=== PATIENT | female | born 1975 | race African-American/Black ===

== ENCOUNTER 2018-09-10 14:13 | Outpatient (CLI) | payer BC ==
[2018-09-10 15:12] LABS: AMORPHOUS SEDIMENT,URINE TRACE /HPF; APPEARANCE,URINE CLOUDY; BILIRUBIN,URINE NEGATIVE (NEGATIVE); COLOR,URINE YELLOW; GLUCOSE, URINE 50 mg/dL (NEGATIVE); KETONES,URINE NEGATIVE (NEGATIVE); LEUKOCYTE ESTERASE,URINE TRACE (NEGATIVE); NITRITE,URINE NEGATIVE (NEGATIVE); PROTEIN,URINE NEGATIVE (NEGATIVE); URINE SPECIFIC GRAVITY 1.019; UROBILINOGEN,URINE NEGATIVE mg/dL (<2.0)
[2018-09-10 16:22] LABS: URINE AMPHETAMINES SCREEN NEGATIVE; URINE BARBITURATES SCREEN NEGATIVE; URINE BENZODIAZEPINES SCREEN NEGATIVE; URINE COCAINE SCREEN NEGATIVE; URINE MARIJUANA (THC) SCREEN NEGATIVE; URINE METHADONE SCREEN NEGATIVE; URINE PHENCYCLIDINE SCREEN NEGATIVE
== END 2018-09-10 15:27 | disposition home or self-care (01) ==
LOC: LC 14:13
PROVIDERS: ATTEND Obstetrics & Gynecology
PROC: 4A1HXCZ Monitoring of Products of Conception, Cardiac Rate, External Approach (ICD-10-PCS; principal; 2018-09-10)
DX: O47.03 False labor before 37 completed weeks of gestation, third trimester (principal); O09.523 Supervision of elderly multigravida, third trimester; Z3A.33 33 weeks gestation of pregnancy
CPT/HCPCS: 59025; 80307; 81001

== ENCOUNTER 2018-10-01 14:00 | Outpatient (CLI) | payer BC ==
--- NOTE | 2018-10-01 14:09 | Non Stress Test Report ---
Non Stress Test Datetime Report Generated by CPN: 10/01/2018 14:09 DEMOGRAPHIC EGA NST: 33.1 INDICATION Indication for Study: Ordered by Provider MONITORING Monitor Explained: Monitor Explained; Test Explained; Patient Verbalized Understanding Time on Monitor: 09/10/2018 14:32 Time off Monitor: 09/10/2018 14:57 NST Duration: 25 NST INTERVENTIONS NST Interventions: PO Hydration Physician Notified NST: French, CNM BABY A: [id number] BABY A Movement : Present Contraction Frequency : x2 FHR Baseline : 150 Accelerations : 15X15 Decelerations : None Variability : Moderate 6-25bpm NST Review: Meets Criteria for Reactive NST NST Review and Verified By : Ritu Betancourt RN NST Results: Reactive NST REPORT Report Trigger: Send Report
== END 2018-10-01 14:40 | disposition home or self-care (01) ==
LOC: LC 14:00
PROVIDERS: ATTEND Obstetrics & Gynecology
PROC: 4A1HXCZ Monitoring of Products of Conception, Cardiac Rate, External Approach (ICD-10-PCS; principal; 2018-10-01)
DX: Z34.93 Encounter for supervision of normal pregnancy, unspecified, third trimester (principal)
CPT/HCPCS: 59025

== ENCOUNTER 2018-10-22 16:08 | Inpatient (IN) | payer BC ==
--- NOTE | 2018-10-22 16:16 | Non Stress Test Report ---
Non Stress Test Datetime Report Generated by CPN: 10/22/2018 16:15 DEMOGRAPHIC EGA NST: 36.1 INDICATION Indication for Study: Ordered by Provider; Other Indication for Study (NST) Other: Advanced Maternal Age VITAL SIGNS Temperature - NST: 97.4 Pulse - NST: 100 RESP - NST: 17 NBPSYS NST: 113 NBPDIA NST: 55 MONITORING Monitor Explained: Monitor Explained; Test Explained; Patient Verbalized Understanding Time on Monitor: 10/01/2018 14:09 Time off Monitor: 10/01/2018 14:29 NST Duration: 20 NST INTERVENTIONS NST Interventions: PO Hydration Physician Notified NST: A Hess CNM BABY A: [id number] BABY A Movement : Present Contraction Frequency : 0 Contraction Frequency : denies FHR Baseline : 135 Accelerations : 15X15 Decelerations : None Variability : Moderate 6-25bpm NST Review: Meets Criteria for Reactive NST NST Review and Verified By : Ritu Betancourt RN NST Results: Reactive NST REPORT Report Trigger: Send Report
[2018-10-22 16:52] LABS: APPEARANCE,URINE TURBID; BILIRUBIN,URINE NEGATIVE (NEGATIVE); COLOR,URINE AMBER; GLUCOSE, URINE NEGATIVE (NEGATIVE); KETONES,URINE NEGATIVE (NEGATIVE); LEUKOCYTE ESTERASE,URINE TRACE (NEGATIVE); NITRITE,URINE NEGATIVE (NEGATIVE); PROTEIN,URINE 100 mg/dL (NEGATIVE); URINE SPECIFIC GRAVITY 1.023; UROBILINOGEN,URINE NEGATIVE mg/dL (<2.0)
[2018-10-22] MEDS ORDERED: CEFAZOLIN SODIUM 2 GM in DEXTROSE 5%-WATER 50 ML IV PRN (17:00)
[2018-10-22] MEDS ORDERED: RINGERS SOLUTION,LACTATED 1,000 ML IV PRN ×2 (17:02→18:19)
[2018-10-22] MEDS ORDERED: CITRIC ACID/SODIUM CITRATE ORAL SOLN 15 ML UDCUP ONE (17:07)
[2018-10-22] MEDS ORDERED: CEFAZOLIN 2 GM/D5W RTU 2 GM/50 ML RTUPB IV ONE (17:08)
[2018-10-22] MEDS ORDERED: METOCLOPRAMIDE HCL INJ/PF 10 MG/2 ML SDV ONE (17:08)
[2018-10-22 17:21] LABS: URINE AMPHETAMINES SCREEN NEGATIVE; URINE BARBITURATES SCREEN NEGATIVE; URINE BENZODIAZEPINES SCREEN NEGATIVE; URINE COCAINE SCREEN NEGATIVE; URINE MARIJUANA (THC) SCREEN NEGATIVE; URINE METHADONE SCREEN NEGATIVE; URINE PHENCYCLIDINE SCREEN NEGATIVE
--- NOTE | 2018-10-22 17:21 | Admission Physical ---
Datetime Report Generated by CPN: 10/22/2018 17:20 CURRENT ADMISSION Chief Complaint: Suspected Ruptured Membranes Indication for Induction: Not Applicable Admit Impression : No Active Labor; Repeat Section Admit Plan: Admit to Unit; Initiate Section Protocol ALLERGIES Medication Allergies: No Medication Allergies: No Known Allergies (10/22/2018) Latex: No Latex Allergies OBSTETRICAL HISTORY EDC: 10/28/2018 00:00 : 4 Para: 2 Term: 2 Livin Gestational Diabetes: No Rh Sensitization: No Incompetent Cervix: No ASHER: No Infertility: No ART Treatment: No Uterine Anomaly: No IUGR: No Hx Previous C/S: Yes Macrosomia: No Hx Loss/Stillborn: No PIH: No Hx : No Placenta Previa/Abruption: No Depression/PP Depression: No PTL/PROM: No Post Hemorrhage: No Current Procedures: Ultrasound; NST Obstetrical History Comments: G1: 1992 EAB G2: 2013 G3: 2015 SEE RECORDS Alcohol: No Marijuana : No Cocaine: No Other Illicit Drugs: No Cigarettes: Never Smoker. 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 INFECTIOUS HISTORY Gonorrhea: No Genital Herpes: Yes Chlamydia: No Tuberculosis: No Syphilis: No Hepatitis: No HIV/AIDS Exposure: No Rash or Viral Illness: No HPV: No PHYSICAL EXAM General: Normal HEENT: Normal Neurologic: Normal Thyroid: Normal Heart: Normal Lungs: Normal Breast: Normal Back: Normal Abdomen: Normal Genitourinary Exam: Normal Extremities: Normal DTRs: Normal Pelvic Type: Adequate Vital Signs: Reviewed; Within Normal Limits MEMBRANES Pooling: Positive Membranes: Ruptured Amniotic Fluid Color: Clear FETUS A EGA: 39.1 Monitoring: External US FHR- Baseline: 140s Accelerations: 15X15 Decelerations: None FHR Category: Category I Admit Comment: Pt grossly ruptured. Pt states that she had ROM at 1545, while at the [employer]. Will proceed with Repeat C/S. PLANS FOR LABOR AND DELIVERY Labor and Delivery: None Pain Management: Spinal Feeding Preference: Breast Benefit of Breast Feed Discussed: Yes Circumcision: Yes INFORMED CONSENT Signature: with User ID: [email or web address]
[2018-10-22] MEDS ORDERED: FENTANYL CITRATE INJ/PF 100 MCG/2 ML AMPUL ONE ×2 (17:28→20:55)
[2018-10-22] MEDS ORDERED: BUPIVACAINE HCL/DEX-WATER/PF 15 MG/2 ML AMPULE ONE (17:28)
[2018-10-22] MEDS ORDERED: OXYTOCIN 10 UNIT/ML VIAL ONE (17:28)
[2018-10-22] MEDS ORDERED: MIDAZOLAM 2 MG/2 ML INJ ONE (17:29)
[2018-10-22] MEDS ORDERED: ONDANSETRON HCL INJ/PF 4 MG/2 ML SDV ONE (17:29)
[2018-10-22] MEDS ORDERED: OXYTOCIN/NORMAL SALINE 20 UNIT/1,000 ML RTUINJ ONE (17:29)
[2018-10-22 18:05] LABS: ABSOLUTE EOSINOPHILS # (AUTO) 0.1 10^3/uL (0.0-0.6); ABSOLUTE LYMPHOCYTES (AUTO) 1.4 10^3/uL (0.5-4.7); ABSOLUTE MONOCYTES (AUTO) 0.7 10^3/uL (0.1-1.4); ABSOLUTE NEUT (AUTO) 4.4 10^3/uL (1.7-8.2); BASOPHILS % (AUTO) 0.5 % (0-2); EOSINOPHILS % (AUTO) 1.7 % (0-6); HEMATOCRIT 31.1 % (36.0-47.0); HEMOGLOBIN 10.6 g/dL (12.0-15.5); LYMPHOCYTES % (AUTO) 20.3 % (13-45); MEAN CORPUSCULAR HEMOGLOBIN 29.1 pg (27.0-33.4); MEAN CORPUSCULAR VOLUME 86 fl (80-97); MONOCYTES % (AUTO) 11.1 % (3-13); PLATELET COUNT 233 10^3/uL (150-450); RED BLOOD COUNT 3.63 10^6/uL (3.72-5.28); RED CELL DISTRIBUTION WIDTH 14.8 % (11.5-14.0); SEGMENTED NEUTROPHILS % (AUTO) 66.4 % (42-78); TOTAL CELLS COUNTED % (AUTO) 100 %; WHITE BLOOD COUNT 6.7 10^3/uL (4.0-10.5)
[2018-10-22] MEDS ORDERED: CEFAZOLIN 1 GM/D5W RTU 1 GM/50 ML RTUPB IV ONE (18:18)
[2018-10-22] MEDS ORDERED: SIMETHICONE 80 MG TAB.CHEW PO PRN (18:19)
[2018-10-22] MEDS ORDERED: OXYTOCIN/NORMAL SALINE 20 UNIT/1,000 ML RTUINJ IV PRN (18:19)
[2018-10-22] MEDS ORDERED: ACETAMINOPHEN 1,000 MG/100 ML RTUPB IV PRN (18:19)
[2018-10-22] MEDS ORDERED: ACETAMINOPHEN 325 MG TABLET PO PRN (18:19)
[2018-10-22] MEDS ORDERED: PROMETHAZINE HCL INJ 25 MG/1 ML VIAL IV PRN ×2 (18:19→18:42)
[2018-10-22] MEDS ORDERED: HYDROMORPHONE HCL INJ/PF 2 MG/ML AMPULE IV PRN (18:19)
[2018-10-22] MEDS ORDERED: DIPH/PERTUSS(ACELL)/TETANUS VAC/PF 0.5 ML SYR (>=10YO) IM PRN (18:19)
[2018-10-22] MEDS ORDERED: OXYCODONE-ACETAMINOPHEN 5-325 MG TABLET PO PRN (18:19)
[2018-10-22] MEDS ORDERED: MEPERIDINE HCL/PF INJ 25 MG/1 ML DISP.SYRIN IV PRN (18:42)
[2018-10-22] MEDS ORDERED: DIPHENHYDRAMINE HCL 50 MG/ML VIAL IV PRN (18:42)
[2018-10-22] MEDS ORDERED: FENTANYL CITRATE INJ/PF 100 MCG/2 ML AMPUL IV PRN ×3 (18:42)
[2018-10-22] MEDS ORDERED: MORPHINE SULFATE 10 MG/ML INJ IV PRN (18:42)
[2018-10-22] MEDS ORDERED: NALBUPHINE HCL INJ 10 MG/1 ML AMPULE ONE ×3 (18:45→19:54)
--- NOTE | 2018-10-22 19:34 | PDOC DELIVERY SUMMARY ---
Delivery Summary - Maternal Hx : III Hx Para: II Hx # Term Pregnancies: 2 Hx # Pregnancies: 0 Number of Living Children: 2 DENAE: 10/28/18 Gestational Age: 39.1 Risk Factors: Previous Ruptured Membranes: SROM Time of Rupture: 15:45 Fluids: Clear Fluid Description: clear - Delivery Labor: Not In Labor Presentation: Vertex Heart Rate Monitoring: Externally Uterine Contraction Monitoring: External Support Person Present: Yes Location: LD : Repeat Placenta: Within Normal Limits Placenta Description: Normal-appearing Number of Vessels (Cord): 3 Nuchal Cord: Yes Delivery of Placenta Date: 10/22/18 Estimated Blood Loss: 600 ml - Medications Type of Anesthesia:: Spinal - Delivery Personnel MD: JELENA BATRES
--- NOTE | 2018-10-22 19:38 | Operative Report ---
Operative Report DATE OF SURGERY: 10/22/18 PREOPERATIVE DIAGNOSIS: 1. Intrauterine at 39-1/7 weeks. 2. Previous section x2. 3. Premature rupture of membranes. 4. Advanced maternal age. 5. GBS negative. 6. Rubella immune. 7. Rh+ POSTOPERATIVE DIAGNOSIS: Same OPERATION: Repeat section SURGEON: JELENA ANAYA ANESTHESIA: Spinal TISSUE REMOVED OR ALTERED: Placenta COMPLICATIONS: None ESTIMATED BLOOD LOSS: 600 ml INTRAOPERATIVE FINDINGS: Male in a cephalic position; nuchal and body cord x1; normal appearing uterus, bilateral tubes and ovaries PROCEDURE: The patient was taken to the operating room where spinal anesthesia was obtained and found to be adequate. She was then prepped and draped in the normal sterile fashion and placed in the dorsal supine position with a leftward tilt. A Pfannenstiel skin incision was then made and carried through to the underlying layers of the fascia with the scalpel. The fascia was incised in the midline and the incision extended laterally with the Lr scissors. The superior aspect of the fascial incision was then grasped with Carmelo clamps elevated and the underlying rectus muscles dissected off both bluntly and sharply. Attention was then turned to the inferior aspect of the fascial incision which in a similar fashion was grasped, tented up with Carmelo clamps, and the rectus muscles dissected off both bluntly and sharply. The rectus muscles were then in the midline and the peritoneum at the amount identified and entered [bluntly]. The peritoneal incision was then extended superiorly and inferiorly with good visualization of the bladder. The bladder blade was inserted and the vesicouterine peritoneum identified grasped with [place] pickups and entered sharply with the Metzenbaum scissors. This incision was then extended laterally with the Metzenbaum scissors and a bladder flap created digitally. The bladder blade was then reinserted and the lower uterine segment incised in a transverse fashion with the scalpel. The uterine incision was then extended bluntly and with th bandage scissors. The bladder blade was removed and the 's head was delivered from cephalic presentation atraumatically. The nose and mouth were suctioned and the cord doubly clamped and cut. The infant was handed off to waiting pediatricians. The placenta was then delivered manually and the uterus exteriorized and cleared of all clots and debris. The uterine incision was then repaired with 0 Vicryl in a running locked fashion. 0-Chromic was used to obtain hemostasis via imbrication of the initial layer. The bladder flap was then repaired with 3 -0 Vicryl in a running fashion. The uterus was returned to the patient's abdomen and Interceed was placed overlying the uterine incision, as well as a piece placed vertically on the anterior surface of the uterus, to prevent adhesions. The gutters were cleared of all clots and debris. All operative sites were noted to be hemostatic. The fascia was reapproximated with 0 Vicryl in a running fashion from each lateral edge to the midline. The subcutaneous fat layer was then closed in an interrupted fashion with 3-0 vicryl. The skin was closed with 4-0 Monocryl in a running, subcuticular fashion. The patient tolerated the procedure well. Sponge, lap, needle and instrument counts are correct x 2. 2 g of Ancef were given prior to skin incision. The patient was taken to the recovery area awake and in stable condition.
[2018-10-22] MEDS ORDERED: ACETAMINOPHEN 1,000 MG/100 ML RTUPB IV ONE (19:58)
[2018-10-23] MEDS: KETOROLAC TROMETHAMINE INJ/PF 30 MG/1 ML SDV IV SCH ×3 (03:03→17:37)
[2018-10-23 08:13] LABS: HEMATOCRIT 29.9 % (36.0-47.0); HEMOGLOBIN 10.2 g/dL (12.0-15.5); MEAN CORPUSCULAR HEMOGLOBIN 29.5 pg (27.0-33.4); MEAN CORPUSCULAR HGB CONC 34.1 g/dL (32.0-36.0); MEAN CORPUSCULAR VOLUME 87 fl (80-97); PLATELET COUNT 187 10^3/uL (150-450); RED BLOOD COUNT 3.46 10^6/uL (3.72-5.28); RED CELL DISTRIBUTION WIDTH 14.7 % (11.5-14.0)
[2018-10-23] MEDS ORDERED: IRON SUCROSE COMPLEX INJ/PF 100 MG/5 ML SDV IV ONE (09:00)
--- NOTE | 2018-10-23 09:41 | PDOC PROGRESS REPORT ---
Subjective-OB Progress Note for:: 10/23/18 Subjective: reports bleeding slowing, pain controlled with current meds. denies needs. reports +passing gas, no BM yet Physical Exam (OB) Vital Signs: Temp Pulse Resp BP Pulse Ox 98.0 F 77 18 115/71 98 10/23/18 08:24 10/23/18 08:24 10/23/18 08:24 10/23/18 08:24 10/23/18 08:24 Intake & Output 10/22/18 10/23/18 10/24/18 06:59 06:59 06:59 Output Total 400 Balance -400 Weight 105.6 kg - Dressing Removed: No - elasticon Clean, dry and intact Incision: Dressing, Well Approximated - Abdomen Description: Tender, Soft, Round Hernia Present: No Fundal Description: Firm, Midline Fundal Height: u/u - u/2 - Extremities Lower extremities: Adrian's sign - neg Calf: Normal, Nontender Objective-Diagnostic Laboratory: 10/23/18 07:04 10/22/18 10/22/18 10/22/18 16:17 17:53 17:53 WBC 6.7 RBC 3.63 L Hgb 10.6 L Hct 31.1 L MCV 86 MCH 29.1 MCHC 34.0 RDW 14.8 H Plt Count 233 Seg Neutrophils % 66.4 Lymphocytes % 20.3 Monocytes % 11.1 Eosinophils % 1.7 Basophils % 0.5 Absolute Neutrophils 4.4 Absolute Lymphocytes 1.4 Absolute Monocytes 0.7 Absolute Eosinophils 0.1 Absolute Basophils 0.0 Urine Color PAUL Urine Appearance TURBID Urine pH 6.0 Ur Specific [place] 1.023 Urine Protein 100 H Urine Glucose (UA) NEGATIVE Urine Ketones NEGATIVE Urine Blood LARGE H Urine Nitrite NEGATIVE Ur Leukocyte Esterase TRACE H Blood Type O POSITIVE Antibody Screen NEGATIVE 10/23/18 07:04 WBC 7.0 RBC 3.46 L Hgb 10.2 L Hct 29.9 L MCV 87 MCH 29.5 MCHC 34.1 RDW 14.7 H Plt Count 187 Seg Neutrophils % Lymphocytes % Monocytes % Eosinophils % Basophils % Absolute Neutrophils Absolute Lymphocytes Absolute Monocytes Absolute Eosinophils Absolute Basophils Urine Color Urine Appearance Urine pH Ur Specific [place] Urine Protein Urine Glucose (UA) Urine Ketones Urine Blood Urine Nitrite Ur Leukocyte Esterase Blood Type Antibody Screen Assessment and Plan(PN) - Assessment and Plan (1) PROM (premature rupture of membranes) Qualifiers: PROM gestational age: full term Is this a current diagnosis for this admission?: Yes (2) Previous delivery affecting Is this a current diagnosis for this admission?: Yes (3) Delivery by elective caesarean section Is this a current diagnosis for this admission?: Yes (4) AMA (advanced maternal age) multigravida 35+ Is this a current diagnosis for this admission?: Yes - Time Spent with Patient Time with patient: Less than 15 minutes Medications reviewed and adjusted accordingly: Yes - Disposition Anticipated Discharge: Home Within: within 24 hours
[2018-10-23] MEDS: PRENATAL VITAMIN W DHA CAPSULE PO SCH (10:16)
[2018-10-23] MEDS: OXYCODONE-ACETAMINOPHEN 5-325 MG TABLET PO PRN ×2 (10:16→17:36)
[2018-10-23] MEDS: DOCUSATE SODIUM 100 MG CAPSULE PO SCH ×2 (10:16→17:37)
[2018-10-23] MEDS: IBUPROFEN 800 MG TABLET PO SCH ×2 (17:29→23:05)
[2018-10-24] MEDS: IBUPROFEN 800 MG TABLET PO SCH ×2 (06:02→12:12)
[2018-10-24] MEDS: OXYCODONE-ACETAMINOPHEN 5-325 MG TABLET PO PRN (07:19)
--- NOTE | 2018-10-24 08:56 | PDOC PROGRESS REPORT ---
Subjective Progress Note for:: 10/24/18 Subjective:: Patient states that she feels good, pain controlled; decreasing lochia. Patient denies chest pain, shortness of breath, fever/chills or nausea/ vomiting. She is ambulating voiding without difficulty. Reason For Visit: , SECTION Physical Exam - Physical Exam Vital Signs: Temp Pulse Resp BP Pulse Ox 98.2 F 79 16 121/65 98 10/24/18 07:27 10/24/18 07:27 10/24/18 07:27 10/24/18 07:27 10/24/18 07:27 Intake & Output 10/23/18 10/24/18 10/25/18 06:59 06:59 06:59 Intake Total 700 Output Total 400 850 Balance -400 -150 Weight 105.6 kg General appearance: PRESENT: no acute distress Respiratory exam: PRESENT: clear to auscultation carol Cardiovascular exam: PRESENT: RRR GI/Abdominal exam: PRESENT: normal bowel sounds, soft Musculoskeletal exam: ABSENT: ambulatory, deformity, dislocation, full ROM, normal inspection, tenderness, other Result Laboratory Results: 10/23/18 07:04 Assessment & Plan - Diagnosis (1) PROM (premature rupture of membranes) Qualifiers: PROM gestational age: full term Is this a current diagnosis for this admission?: Yes (2) Previous delivery affecting Is this a current diagnosis for this admission?: Yes (3) AMA (advanced maternal age) multigravida 35+ Is this a current diagnosis for this admission?: Yes (4) Delivery by elective caesarean section Is this a current diagnosis for this admission?: Yes (5) Qualifiers: Weeks of gestation: 39 weeks Qualified Code(s): Z3A.39 - 39 weeks gestation of Is this a current diagnosis for this admission?: Yes - Time Time Spent with patient: Less than 15 minutes - Plan Summary Plan Summary: Plan: 1. discharge home today 2. Follow-up in the office in 1 week for incision check or sooner if needed
--- NOTE | 2018-10-24 09:05 | PDOC DISCHARGE SUMMARY ---
General - Admit/Disc Date/PCP Admission Date/Primary Care Provider: 10/22/18 17:05 LISSETTE MONTIEL MD Discharge Date: 10/24/18 - Discharge Diagnosis (1) PROM (premature rupture of membranes) Is this a current diagnosis for this admission?: Yes (2) Previous delivery affecting Is this a current diagnosis for this admission?: Yes (3) AMA (advanced maternal age) multigravida 35+ Is this a current diagnosis for this admission?: Yes (4) Delivery by elective caesarean section Is this a current diagnosis for this admission?: Yes (5) Is this a current diagnosis for this admission?: Yes - Additional Information Discharge Diet: As Tolerated, Regular Discharge Activity: Balance Activity w/Rest, No Lifting Over 10 Pounds, Pelvic Rest, Slowly Increase Activity, No tub bath Home Medications: Pnv95/Iron Fum/Folic Acid [ [place]] 1 tab PO DAILY 03/11/16 History of Present Illness History of Present Illness: FARHAT BRAMBILA is a 43 year old female Hospital Course Hospital Course: Hospital course was essentially uneventful and by postop day #1, the patient is ambulating and voiding without difficulty. Patient states that her pain was controlled. Physical Exam - Physical Exam Vital Signs: Temp Pulse Resp BP Pulse Ox 98.2 F 79 16 121/65 98 10/24/18 07:27 10/24/18 07:27 10/24/18 07:27 10/24/18 07:27 10/24/18 07:27 Intake & Output 10/23/18 10/24/18 10/25/18 06:59 06:59 06:59 Intake Total 700 Output Total 400 850 Balance -400 -150 Weight 105.6 kg General appearance: PRESENT: no acute distress Respiratory exam: PRESENT: clear to auscultation carol Cardiovascular exam: PRESENT: RRR GI/Abdominal exam: PRESENT: normal bowel sounds, soft - Incision: Clean/dry/ intact; no erythema Extremities exam: ABSENT: calf tenderness, clubbing, full ROM, joint swelling, pedal edema, tenderness, +1 edema, +2 edema, other Result Laboratory Results: 10/23/18 07:04 Plan Discharge Plan: Plan: 1. discharge today 2. Cont incentive spirometry x 1 week 3. May shower as usual Time Spent: Less than 30 Minutes
[2018-10-24] MEDS ORDERED: FERROUS SULFATE 325 MG TABLET PO SCH (10:00)
[2018-10-24 10:31] VITALS: BP 113/67
[2018-10-24] MEDS: PRENATAL VITAMIN W DHA CAPSULE PO SCH (10:59)
[2018-10-24] MEDS: DOCUSATE SODIUM 100 MG CAPSULE PO SCH (10:59)
== END 2018-10-24 16:57 | disposition home or self-care (01) | DRG 788 ==
LOC: LC 16:08 → LR 17:05 → 2S 21:32
PROVIDERS: ADMIT Obstetrics & Gynecology; ATTEND Obstetrics & Gynecology
PROC: 10D00Z1 Extraction of Products of Conception, Low, Open Approach (ICD-10-PCS; principal; 2018-10-22)
PROC: 4A1HXCZ Monitoring of Products of Conception, Cardiac Rate, External Approach (ICD-10-PCS; 2018-10-22)
DX: O34.211 Maternal care for low transverse scar from previous cesarean delivery (principal); O69.81X0 Labor and delivery complicated by cord around neck, without compression, not applicable or unspecified; O69.2XX0 Labor and delivery complicated by other cord entanglement, with compression, not applicable or unspecified; O42.92 Full-term premature rupture of membranes, unspecified as to length of time between rupture and onset of labor; O99.284 Endocrine, nutritional and metabolic diseases complicating childbirth; E05.00 Thyrotoxicosis with diffuse goiter without thyrotoxic crisis or storm; Z3A.39 39 weeks gestation of pregnancy; Z37.0 Single live birth
CPT/HCPCS: 1961; 36415; 80307; 81005; 84112; 85025; 85027; 86592; 86850; 86900; 86901; C1765; J0131; J0690; J1170; J1756; J1885; J2250; J2300; J2405; J2590; J2765; J3010; J3490; J7120